=== PATIENT | male | born 1975 | race Caucasian/White ===

== ENCOUNTER 2023-05-14 16:50 | Outpatient (REF) | payer OTHER, SELFPAY | END 2023-05-14 16:51 | disposition home or self-care (01) | LOC: HO.HOSX 16:50 | PROVIDERS: Visit Provider Orthopaedic Surgery | DX: Z13.89 Encounter for screening for other disorder (principal) ==

== ENCOUNTER 2023-05-20 12:02 | Outpatient (REF) | payer OTHER, SELFPAY ==
--- NOTE | ~2023-05-20 | XR_ITS ---
EXAMINATION: XR KNEE, LEFT CLINICAL INFORMATION: Pain in left knee COMPARISON: None available. TECHNIQUE: Four views of the left knee. FINDINGS: No fracture. Small joint effusion. There is moderate to marked narrowing of the medial joint compartment. There is mild narrowing of the patellofemoral joint compartment. There are tricompartment marginal osteophytes. Quadriceps enthesopathy is noted. No abnormal soft tissue calcification. XR/XR knee LT 3V IMPRESSION: Moderate to marked osteoarthritis involving the medial joint compartment.
--- NOTE | ~2023-05-20 | XR_ITS ---
EXAMINATION: XR KNEE, RIGHT CLINICAL INFORMATION: Pain in right knee COMPARISON: None available. TECHNIQUE: 3 views of the right knee. FINDINGS: No fracture. Probable small joint effusion. Alignment is anatomic. There is moderate to marked narrowing of the medial joint compartment. No abnormal soft tissue calcification. XR/XR knee RT 3V IMPRESSION: Moderate to marked osteoarthritis of the medial joint compartment.
== END 2023-05-20 12:03 | disposition home or self-care (01) ==
LOC: HO.HOSX 12:02
PROVIDERS: Visit Provider Orthopaedic Surgery
DX: M25.561 Pain in right knee (principal); M25.562 Pain in left knee
CPT/HCPCS: 73562

== ENCOUNTER 2023-05-20 15:06 | Outpatient (AMB) | payer OTHER, SELFPAY ==
--- NOTE | 2023-05-20 15:09 | MHC.OFFVIS ---
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 Patient reports his pain has been going on for about 4 years and is a 7 on the 1-10 pain scale. He states his Left is worse. He has had gel injections with some relief. He has also had cortisone injections which gave him no relief. He has not able to take anti-inflammatory medicines because he is on Xarelto. He has tried Tylenol which gives him minimal relief. 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 Physical Exam Const Other: Well-nourished well-developed very friendly male awake alert and oriented x3 in no acute distress Extrem Other: Bilateral lower extremity examination shows good capillary refill, no skin lesions noted, normal sensation light touch Bilateral knee examination shows minimal effusions, palpable crepitus, pain with range of motion, no instability Results Reviewed Results Reviewed: X-rays of the patient's bilateral knees show moderate to severe joint space narrowing, subchondral sclerosis, no acute bony abnormalities Assessment & Plan Assessment & Plan (1) Right knee pain: Code(s): M25.561 - Pain in right knee (2) Left knee pain: Code(s): M25.562 - Pain in left knee Plan Mr. Jacobs presents with bilateral knee pains due to degenerative joint disease. I had a lengthy discussion with the patient regarding the treatment options. He has not gotten good relief from cortisone injections in the past. Thus, I will see whether or not his insurance company will cover a series of viscosupplementation injections for both of his knees. I will see him back once the injections are available. The patient will follow-up as instructed. I spent 22 minutes in reviewing the patient's records and imaging studies, seeing the patient and documenting in the medical record. Orders: Orders XR knee LT 3V 05/20/23 M25.562 - Pain in left knee XR knee RT 3V 05/20/23 M25.561 - Pain in right knee Medications: New tramadol 50 mg PO Q8H PRN 90 tabs 0RF pain Coding Level of Care Code New Pt Level 2 (71176) Diagnoses Right knee pain M25.561 Left knee pain M25.562
== END 2023-05-20 16:10 | disposition home or self-care (01) ==
PROVIDERS: Visit Provider Orthopaedic Surgery
DX: M25.561 Pain in right knee (principal); M25.562 Pain in left knee
CPT/HCPCS: 99202

== ENCOUNTER 2023-06-18 13:32 | Outpatient (AMB) | payer OTHER, SELFPAY ==
--- NOTE | 2023-06-18 13:52 | A.OFFVIS_ITS ---
Intake Intake Visit Reasons: Durolane gel injection Intake Note: Derrick is a 48-year-old male who presents with complaints of progressively worsening bilateral knee pains. His pains have gotten worse over the last few years in spite of continued non operative treatments. He has had cortisone injections which gave him minimal relief. He has also done physical therapy exercises which aggravated his pain. He has tried Tylenol and tramadol which gave him minimal relief. He has not able to take anti-inflammatory medicines because he is on Xarelto. 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 Physical Exam Const Other: Well-nourished well-developed very friendly male awake alert and oriented x3 in no acute distress Extrem Other: Bilateral lower extremity examination shows good capillary refill, no skin lesions noted, normal sensation light touch Bilateral knee examination shows minimal effusions, palpable crepitus with range of motion, pain with range of motion, no instability Office Procedures Joint Injection/Drain Joint Injection/Drain Primary Site: left knee Prep: site was prepped using aseptic technique Injected: 60 mg of (Durolane viscosupplementation) and 1% plain lidocaine Procedure: The patient tolerated the procedure well Coding 73843 - Large joint Procedure code (CPT) selection complete Joint Injection/Drain Joint Injection/Drain Primary Site: right knee Prep: site was prepped using aseptic technique Injected: 60 mg of (Durolane viscosupplementation) and 1% plain lidocaine Procedure: The patient tolerated the procedure well Coding 97950 - Large joint Procedure code (CPT) selection complete Results Reviewed Results Reviewed: X-rays of the patient's bilateral knee show joint space narrowing, subchondral sclerosis, no acute bony abnormalities Assessment & Plan Assessment & Plan (1) Left knee pain: Code(s): M25.562 - Pain in left knee (2) Right knee pain: Code(s): M25.561 - Pain in right knee Plan Mr. Jacobs presents with bilateral knee pains due to degenerative joint disease. I had a lengthy discussion with the patient regarding the treatment options. He has not gotten good relief from cortisone injections in the past. Thus, the risks and benefits of bilateral knee Durolane viscosupplementation injections were discussed at length with the patient. The patient wished to proceed. He tolerated the injections well. He will continue with his home exercise program. Will follow up with me on an as-needed basis should his symptoms not plateau at an unacceptable level over the next few months. Feel free to call me at any time should questions regarding his orthopedic management arise. I spent 22 minutes in reviewing the patient's records and imaging studies, seeing the patient and documenting in the medical record. Orders: Orders AMB Joint Injection/Aspiration 06/18/23 M25.562 - Pain in left knee AMB Joint Injection/Aspiration 06/18/23 M25.561 - Pain in right knee Coding Level of Care Code Est Pt Level 2 (23337) Diagnoses Left knee pain M25.562 Right knee pain M25.561 CPT Codes Coding - 74308 Large joint: 23256 - Large joint ([id number]) Coding - 29679 Large joint: 91581 - Large joint ([id number])
== END 2023-06-18 14:24 | disposition home or self-care (01) ==
PROVIDERS: Visit Provider Orthopaedic Surgery
DX: M17.0 Bilateral primary osteoarthritis of knee (principal)
CPT/HCPCS: 20610

== ENCOUNTER → 2023-06-18 13:32 | Outpatient (BNVA) | payer OTHER, SELFPAY | PROVIDERS: Visit Provider Orthopaedic Surgery | DX: M17.0 Bilateral primary osteoarthritis of knee (principal) | CPT/HCPCS: 20610; J7318 ==

== ENCOUNTER 2023-09-22 14:38 | Outpatient (AMB) | payer OTHER, SELFPAY ==
--- NOTE | 2023-09-22 14:40 | A.OFFVIS_ITS ---
Intake Visit Reasons: Bilateral knee pain Intake Note: Derrick is a 48 year old male who presents to the office today for a follow up bilateral Durolane gel injections 06/18/23. Pt states his knees were good for a while but states now the pain is starting to come back. He describes his knee pains as sharp in nature. He has taken Tylenol which gives him minimal relief. He has not able to take anti-inflammatory medicines because he is on Xarelto. He has done physical therapy exercises which aggravated his pain. The patient also complains of numbness and tingling in both of his hands. He states that he did undergo left wrist carpal tunnel release surgery approximately 10 years ago. He was scheduled to undergo right wrist carpal tunnel release surgery 1 year later but he suffered a transient ischemic attack so his surgery was canceled. 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 Physical Exam Const Other: Well-nourished well-developed very friendly male awake alert and oriented x3 in no acute distress Extrem Other: Bilateral lower extremity examination shows good capillary refill, no skin lesions noted, normal sensation light touch Bilateral knee examination shows minimal effusions, palpable crepitus with range of motion, pain with range of motion, no instability Office Procedures Joint Injection/Drain Joint Injection/Drain Primary Site: left knee Prep: site was prepped using aseptic technique Injected: 40 mg of, DepoMedrol and 1% plain lidocaine Procedure: The patient tolerated the procedure well Coding 02563 - Large joint Procedure code (CPT) selection complete Joint Injection/Drain Joint Injection/Drain Primary Site: right knee Prep: site was prepped using aseptic technique Injected: 40 mg of, DepoMedrol and 1% plain lidocaine Procedure: The patient tolerated the procedure well Coding 29014 - Large joint Procedure code (CPT) selection complete Results Reviewed Results Reviewed: X-rays of the patient's bilateral knee show joint space narrowing, subchondral sclerosis, no acute bony abnormalities Assessment & Plan Assessment & Plan (1) Left knee pain: Code(s): M25.562 - Pain in left knee Category: Medical (2) Right knee pain: Code(s): M25.561 - Pain in right knee Category: Medical (3) Pain in both knees: Code(s): M25.561 - Pain in right knee; M25.562 - Pain in left knee Plan Mr. Jacobs presents with bilateral knee pains due to degenerative joint disease. I had a lengthy discussion with the patient regarding the treatment options. The risks and benefits of bilateral knee cortisone injections were discussed at length with the patient. The patient wished to proceed. He tolerated the injections well. He will continue with his activity modifications. The patient also has bilateral hand numbness most likely due to carpal tunnel syndrome. Thus, I will send the patient for bilateral upper extremity nerve studies for further evaluation. I will also make him an appointment with our hand specialist, Dr. Quinn. He will contact me prior to his follow-up appointment in 3 months should any questions or concerns arise. I spent 20 minutes in reviewing the patient's records and imaging studies, seeing the patient and documenting in the medical record. Orders: Orders NE nerve conduction velocity Today G56.03 - Carpal tunnel syndrome, bilateral upper limbs AMB Joint Injection/Aspiration Today M25.561 - Pain in right knee AMB Joint Injection/Aspiration Today M25.562 - Pain in left knee Coding Level of Care Code Est Pt Level 3 (82888) Diagnoses Left knee pain M25.562 Right knee pain M25.561 Pain in both knees M25.561; M25.562 CPT Codes Coding - 95193 Large joint: 98029 - Large joint ([id number]) Coding - 58409 Large joint: 68992 - Large joint ([id number])
== END 2023-09-22 15:30 | disposition home or self-care (01) ==
PROVIDERS: Visit Provider Orthopaedic Surgery
DX: M17.0 Bilateral primary osteoarthritis of knee (principal)
CPT/HCPCS: 20610; 99213

== ENCOUNTER → 2023-09-22 14:38 | Outpatient (BNVA) | payer OTHER, SELFPAY | PROVIDERS: Visit Provider Orthopaedic Surgery | DX: M17.0 Bilateral primary osteoarthritis of knee (principal) | CPT/HCPCS: 20610; J1010 ==

== ENCOUNTER 2023-10-14 15:22 | Outpatient (REF) | payer OTHER, SELFPAY ==
--- NOTE | 2023-10-14 15:25 | EMG_ITS ---
Chief complaint: History of bilateral Carpal Tunnel Syndrome. Left Carpal Tunnel Syndrome surgery more than 10 years ago with good recovery. Right side was not operated on. Last year, patient fell on both hands. Since then he has been having pain on left wrist and 4th and 5th digits. Reason for referral: Evaluate for Carpal Tunnel Syndrome Referred by: Dr. Felix Procedure done: Left upper extremity NCS/EMG Precautions and/or limitations: None The limb temperature was monitored continuously and remained between 32-36 degrees C during the performance of the NCS. Ulnar motor NCS was performed with moderate elbow flexion between 70-90 degrees, with across-elbow distance of 10 cm. Nerve Conduction Studies Anti Sensory Summary Table ?Stim Site NR Onset (ms) Norm Onset (ms) Peak (ms) Norm Peak (ms) O-P Amp (?V) Norm O-P Amp Site1 Site2 Delta-0 (ms) Dist (cm) William (m/s) Norm William (m/s) Left Median Anti Sensory (2nd Digit) Wrist ? 2.6 3.3 <3.6 18.5 >10 Wrist 2nd Digit 2.6 14.0 54 Right Median Anti Sensory (2nd Digit) Wrist ? 3.1 4.3 <3.6 19.0 >10 Wrist 2nd Digit 3.1 14.0 45 Left Radial Anti Sensory (Thumb) Forearm ? 1.3 1.9 <3.1 19.4 Forearm Thumb 1.3 0.0 Right Radial Anti Sensory (Thumb) Forearm ? 0.9 1.5 <3.1 20.9 Forearm Thumb 0.9 0.0 Left Ulnar Anti Sensory (5th Digit) Wrist ? 2.4 3.3 <3.7 4.4 >15.0 Wrist 5th Digit 2.4 14.0 58 Right Ulnar Anti Sensory (5th Digit) Wrist ? 1.3 2.7 <3.7 15.0 >15.0 Wrist 5th Digit 1.3 14.0 108 Motor Summary Table ?Stim Site NR Onset (ms) Norm Onset (ms) O-P Amp (mV) Norm O-P Amp iAmp (mV) Amp (1st) (%) Site1 Site2 Delta-0 (ms) Dist (cm) William (m/s) Norm William (m/s) Left Median Motor (Abd Poll Brev) Wrist ? 3.8 <3.9 6.9 >4.5 8.4 100.0 Elbow Wrist 4.9 24.0 49 >45 Elbow ? 8.7 6.6 8.3 95.7 Right Median Motor (Abd Poll Brev) Wrist ? 4.8 <3.9 7.6 >4.5 8.8 100.0 Elbow Wrist 4.4 22.5 51 >45 Elbow ? 9.2 7.8 8.8 102.6 Left Ulnar Motor (Abd Dig Minimi) Wrist ? 2.7 <3.0 6.9 >5 9.2 100.0 B Elbow Wrist 3.9 22.0 56 >45 B Elbow ? 6.6 6.5 9.0 94.2 A Elbow B Elbow 1.5 10.0 67 >45 A Elbow ? 8.1 6.5 9.1 94.2 Right Ulnar Motor (Abd Dig Minimi) Wrist ? 2.7 <3.0 8.2 >5 10.6 100.0 B Elbow Wrist 3.7 23.5 64 >45 B Elbow ? 6.4 5.8 8.2 70.7 A Elbow B Elbow 1.3 10.0 77 >45 A Elbow ? 7.7 5.1 7.1 62.2 Left Ulnar Motor (FDI) Wrist ? 4.1 <3.0 6.0 >5 7.3 100.0 B Elbow Wrist 4.2 22.0 52 >45 B Elbow ? 8.3 3.2 4.0 53.3 A Elbow B Elbow 1.3 10.0 77 >45 A Elbow ? 9.6 3.1 3.9 51.7 EMG ?Side Muscle Nerve Root Ins Act Fibs Psw Amp Dur Poly Recrt Int Pat Comment Right 1stDorInt Ulnar C8-T1 Nml Nml Nml Nml Nml 0 Nml Complete Right FlexCarRad Median C6-7 Nml Nml Nml Nml Nml 0 Nml Complete Right Biceps Musculocut C5-6 Nml Nml Nml Nml Nml 0 Nml Complete Right Triceps Radial C6-7-8 Nml Nml Nml Nml Nml 0 Nml Complete Right Deltoid Axillary C5-6 Nml Nml Nml Nml Nml 0 Nml Complete Left 1stDorInt Ulnar C8-T1 Incr 1+ 1+ Nml Nml 0 Nml Complete Left FlexCarRad Median C6-7 Nml Nml Nml Nml Nml 0 Nml Complete Left Biceps Musculocut C5-6 Nml Nml Nml Nml Nml 0 Nml Complete Left Triceps Radial C6-7-8 Nml Nml Nml Nml Nml 0 Nml Complete Left Deltoid Axillary C5-6 Nml Nml Nml Nml Nml 0 Nml Complete Left FlexCarpiUln Ulnar C8,T1 Nml Nml Nml Nml Nml 0 Nml Complete FINDINGS: Right median motor nerve showed prolonged distal latency, normal amplitude and normal conduction velocity. Right median sensory nerve showed prolonged peak latencies. Left ulnar motor nerve, recording FDI muscle, showed prolonged distal latency, small amplitudes proximally, but normal conduction velocity. Left ulnar sensory nerve showed normal peak latencies but very small/almost flat amplitude. All other nerves tested were within normal. Concentric needle EMG was performed in selected muscles of the left upper extremity. Study revealed signs of electric abnormalities as shown in the table above. Left FDI showed increased insertional activity, PSWs and fibrillations. IMPRESSION: 1. This is an abnormal study. 2. 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 3. There is no electrodiagnostic evidence for median neuropathy at the wrist on the left. 4. There is electrodiagnostic evidence for right moderate-severe median neuropathy, consistent with Carpal Tunnel Syndrome. 5. There is no electrodiagnostic evidence for ulnar neuropathy on the right. 6. There is no electrodiagnostic evidence for brachial plexopathy or cervical radiculopathy. CLINICAL COMMENT: Ulnar neuropathy at the wrist is far less common than the more usual sites at the elbow; it is usually associated with trauma. Thank you for your kind referral. Lacy Alvarez MD, VANNA Board Certified, [place] Board [employer] Physical Medicine and Rehabilitation (ABPMR) Board Certified, [place] Board of Electrodiagnostic Medicine (ABEM) [place] [id number] [facility]
== END 2023-10-14 15:23 | disposition home or self-care (01) ==
LOC: HO.NEURO 15:22
PROVIDERS: PCP Internal Medicine; Visit Provider Orthopaedic Surgery
DX: G56.03 Carpal tunnel syndrome, bilateral upper limbs (principal)
CPT/HCPCS: 95886; 95911

== ENCOUNTER → 2023-10-14 15:25 | Outpatient (BNV) | payer OTHER, SELFPAY | PROVIDERS: PCP Internal Medicine; Visit Provider Physical Medicine & Rehabilitation | DX: G56.22 Lesion of ulnar nerve, left upper limb (principal); G56.01 Carpal tunnel syndrome, right upper limb | CPT/HCPCS: 95886; 95912 ==

== ENCOUNTER 2023-10-28 14:34 | Outpatient (AMB) | payer OTHER, SELFPAY ==
--- NOTE | 2023-10-28 14:43 | A.OFFVIS_ITS ---
Vital Signs 10/28/23 14:44 Height 5 ft 9 in Weight 380 lb BMI 56.1 Handedness Right Intake Visit Reasons: New prob- B/L CTS RT hand worse Intake Note: Derrick is a 48 year old right 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 male who presents today for bilateral CTS, right hand worse. Patient reports his left hand worsened a year ago after a fall at work. He is unable to get a proper night of rest due to the pain and numbness/tingling. He expresses his left hand cramps, pain radiates from base of thumb and up to his fingers and to his elbow. He states when this happens he has excruciating pain. When he makes a closed fist he has pain at his PIP joints of the 3rd, 4th, and 5th digits that radiates into his wrist and mid way down his arm. He was playing cards with his Thursday night and says he was unable to hold the deck of cards. At work he is having a hard time holding on to objects and paperwork and says he is dropping things. He had OT done but just for the right hand. He reported telling them of his left hand but says they informed him it was just bruised and focused mainly on his right hand. He is unable to take NSAIDS due to his heart medication. He takes Tylenol Arthritis and he does find relief, mainly for his knees but helps his hands a little. Says he can feel the difference when it wears off. Hx of TIA roughly 7-8 years ago a day before surgery for right hand and due to this he was unable to do Rt CTR. EMG done on 10/14/23 and he would like to discuss surgery. 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 The patient reports that symptoms have been ongoing for years, but he noticed an acute worsening in the left hand after a fall at work approximately 1 year ago. The patient reports that, when he does experience acute pain episodes in his left hand, it radiates up into his arm and shoulder, and he feels as if his whole hand is cramping. Pain is also localized to the base of the thumb during these episodes. The patient states that, when he makes a closed fist, he also experiences pain at the MCP and PIP joints of the left middle, ring, small fingers. 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 Patient does have a history of occupational therapy for the right, and he does report that this helped. The patient does report intermittent, but daily numbness and tingling in the median nerve distribution of the right hand, ongoing for at least 8 years. 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 No thenar or intrinsic wasting. Good APB muscle firing and good finger cross. Vascular: Capillary refill brisk. ROM: Patient can make a fist and extend all their digits. Skin: No lacerations or abrasions noted. General: No ecchymosis. No erythema or evidence of infection. Negative Froment sign on the left Results Reviewed Results Reviewed: IMPRESSION: 1. This is an abnormal study. 2. 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 3. There is no electrodiagnostic evidence for median neuropathy at the wrist on the left. 4. There is electrodiagnostic evidence for right moderate-severe median neuropathy, consistent with Carpal Tunnel Syndrome. 5. There is no electrodiagnostic evidence for ulnar neuropathy on the right. 6. There is no electrodiagnostic evidence for brachial plexopathy or cervical radiculopathy. Assessment & Plan Assessment & Plan (1) Ulnar neuropathy at wrist: Code(s): G56.20 - Lesion of ulnar nerve, unspecified upper limb Category: Medical (2) Carpal tunnel syndrome, right: Code(s): G56.01 - Carpal tunnel syndrome, right upper limb Category: Medical Plan 1. Right carpal tunnel syndrome Symptoms intermittent, but daily, worse at night I educated the patient about the condition. I discussed both operative and nonoperative treatment options. The patient would like to proceed with surgery. The risks and benefits of operative treatment were discussed with the patient and the patient wishes to proceed with surgery. These risks include, but are not limited to, risk of damage to blood vessels, nerves, tendons, infection, recurrence, incomplete relief of preoperative symptoms, persistent pain, possible need for further surgery, and the risks associated with regional blocks and/or anesthesia. Plan is to take the patient to the operating room at some point in the next few weeks for the following procedures: 1. Right carpal tunnel release under local anesthesia All of the preoperative paperwork including the consent was discussed today. All of the patient's questions were answered in the clinic today. The patient understands that they will be in contact with our certified surgical technician to discuss scheduling their procedure. Patient denies diabetes, asthma, heart issues, lung issues, kidney issues, or current smoking. Patient is currently on Xarelto 20 mg daily, but does not have to stop due to the procedure being under local anesthesia 2. Ulnar neuropathy at the wrist at Guyon's canal At this time, MRI of the left wrist with and without contrast is ordered to assess the left wrist for any potential ganglion cysts, ulnar artery aneurysms, etc. that could be causing this left ulnar neuropathy Patient is referred to Dr. Quinn for follow-up after MRI Patient is amenable to this plan Patient will follow-up after MRI with Dr. Quinn for discussion of left ulnar neuropathy, sooner with any acute concerns Orders: Orders MR wrist LT w con 10/28/23 G56.20 - Lesion of ulnar nerve, unspecified upper limb Coding Level of Care Code Est Pt Level 4 (90511) Diagnoses Ulnar neuropathy at wrist G56.20 Carpal tunnel syndrome, right G56.01
[2023-10-28 14:44] VITALS: BMI 56.1
== END 2023-10-28 15:40 | disposition home or self-care (01) ==
DX: G56.01 Carpal tunnel syndrome, right upper limb (principal); G56.22 Lesion of ulnar nerve, left upper limb
CPT/HCPCS: 99214

== ENCOUNTER 2023-12-02 10:54 | Outpatient (REF) | payer OTHER, SELFPAY ==
--- NOTE | ~2023-12-02 | MR_ITS ---
EXAMINATION: MR WRIST LT WO/W CON INDICATION: G56.20 - Lesion of ulnar nerve, unspecified upper limb G56 Additional Notes/Special Instructions Ulnar neuropathy at Guyon's canal need to assess for ganglion or ulnar artery aneurysm COMPARISON: None available. TECHNIQUE: Multiplanar MR imaging was obtained through the left wrist on a 1.5 Estefania magnet before and after intravenous administration of 10 mL Gadavist. FINDINGS: Ligaments/TFCC: Intact. Bones and articular cartilage: There is xovm-lf-wttcgrbj osteoarthritis of the first CMC joint with narrowing of cartilage loss, marginal osteophytes, subchondral edema, and subchondral cystic change. Mild osteoarthritis is evident at the second CMC joint with prominent dorsal osteophytes. Joints otherwise relatively well-preserved. A few small carpal cysts are identified. No fracture or malalignment. Joint fluid: No effusion or synovitis. Muscles and tendons: A 2.5 cm segment of marked tendinosis of the extensor pollicis longus is characterized by tendon thickening and increased intersubstance signal, occurring where the tendon crosses the extensor carpi radialis brevis and extensor carpi radialis longus tendons. This is associated tenosynovitis and may correspond to distal intersection syndrome. No appreciable tendon tears. The extensor carpi radialis brevis and longus tendons are intact without tears or tendinosis and minimal tenosynovitis. Tendon is otherwise normal in appearance. Intrinsic hand musculature is normal in signal intensity. Nerves: Carpal tunnel and Guyon's canal are unremarkable. The ulnar nerve is normal in course, caliber, and signal intensity without appreciable mass effect. There is significant tortuosity of the ulnar artery distal to the Guyon's canal. Arteries and veins appear patent on these images including the postcontrast images, assessment for subtle vascular abnormalities is limited without arterial phase imaging. Superficial soft tissues: There is a 7 mm synovial cyst at the volar margin of the radiocarpal joint. Subcutaneous soft tissues are otherwise unremarkable. MR/MR wrist LT wo/w con IMPRESSION: 1. 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 2. Iphv-ow-uqlfbhjm osteoarthritis at the first CMC joint and mild osteoarthritis at the second CMC joint. 3. No appreciable abnormalities of the ulnar nerve. No appreciable mass effect in Guyon's canal. Significant tortuosity of the ulnar artery distal to the Guyon's canal. No appreciable aneurysmal dilatation or thrombosis, though CT or MR angiography would be more sensitive for subtle vascular abnormalities. Electronically signed by: Francisco J Jeong MD 12/03/2023 10:27 AM EDT
[2023-12-02] MEDS: gadobutroL 10 ML VIAL IVPUSH (11:44)
== END 2023-12-02 10:55 | disposition home or self-care (01) ==
LOC: HO.MRI 10:54
PROVIDERS: PCP Internal Medicine
DX: G56.22 Lesion of ulnar nerve, left upper limb (principal)
CPT/HCPCS: 73223; A9585

== ENCOUNTER 2023-12-09 13:59 | Outpatient (AMB) | payer OTHER, SELFPAY ==
--- NOTE | 2023-12-09 14:02 | A.OFFVIS_ITS ---
Vital Signs 12/09/23 14:03 Height 5 ft 9 in Weight 380 lb BMI 56.1 Intake Visit Reasons: OV- Discuss CTS Release/MRI Review Intake Note: Derrick is a 48 year old right 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 male who presents today to discuss left wrist MRI results. Patient recently seen on 10/28/23 for bilateral CTS, right hand worse, by LUISA Melgar. Patient is also scheduled for a right C TR with Dr. Quinn, DOS 12/24/23. Allergies transparent dressing Adverse Reaction (Mild, Verified 12/09/23 14:03) Blister HPI HPI OV- Discuss CTS Release/MRI Review: Details: Derrick is a 48 year old right 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 man who presents for a left wrist MRI review. 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 He complains of pain, weakness, and numbness in his left hand. His pain is primarily in his middle, ring, and small fingers. He complains of intermittent numbness in the left middle, ring, and small fingers. He says his numbness began after a fall at work in ~10/2022, where he landed on his palms. He says he has difficulty holding items for periods of time, including paperwork at work or a deck of cards. This has worsened in the last year. He complains of numbness in the right median nerve distribution. Symptoms inte rmittent, but daily, worse at night. He says he has numbness in the right small finger today. He has a Hx of a left carpal tunnel release in ~2012, with good relief and normal sensation. He has a Hx of a TIA ~8 years ago, the day prior to his scheduled right carpal tunnel release. This surgery was not rescheduled or performed. He works in a [employer]. 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 Review of Systems Const All systems reviewed & are unremarkable except as noted in HPI and below Physical Exam Vital Signs: BMI result Body Mass Index 56.1 Const General: cooperative, healthy appearing and no acute distress Orientation/consciousness: patient oriented x3 HEENT Head: Yes normocephalic and Yes atraumatic Eyes EOM: EOMs intact bilaterally Resp Effort & Inspection: normal respiratory effort and able to speak in complete sentences Cardio Jugular venous distension: no JVD Skin General skin exam: turgor normal Rashes: no rashes Neuro General: patient oriented x3 Extrem Other: Evaluation of Bilateral Upper Extremity: The patient is alert, oriented, and in no acute distress Neuro: Median, Ulnar, Radial nerves motor intact to the tips of all digits today in clinic Normal sensation in the right median nerve distribution. Numbness in the right ulnar nerve distribution Decreased subjective sensation of the middle, ring, and small fingers of the left. 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 General: No Ecchymosis. No Erythema or evidence of infection. Left wrist MRI: FINDINGS: Ligaments/TFCC: Intact. Bones and articular cartilage: There is uilu-nw-whqrzivc osteoarthritis of the first CMC joint with narrowing of cartilage loss, marginal osteophytes, subchondral edema, and subchondral cystic change. Mild osteoarthritis is evident at the second CMC joint with prominent dorsal osteophytes. Joints otherwise relatively well-preserved. A few small carpal cysts are identified. No fracture or malalignment. Joint fluid: No effusion or synovitis. Muscles and tendons: A 2.5 cm segment of marked tendinosis of the extensor pollicis longus is characterized by tendon thickening and increased intersubstance signal, occurring where the tendon crosses the extensor carpi radialis brevis and extensor carpi radialis longus tendons. This is associated tenosynovitis and may correspond to distal intersection syndrome. No appreciable tendon tears. The extensor carpi radialis brevis and longus tendons are intact without tears or tendinosis and minimal tenosynovitis. Tendon is otherwise normal in appearance. Intrinsic hand musculature is normal in signal intensity. Nerves: Carpal tunnel and Guyon's canal are unremarkable. The ulnar nerve is normal in course, caliber, and signal intensity without appreciable mass effect. There is significant tortuosity of the ulnar artery distal to the Guyon's canal. Arteries and veins appear patent on these images including the postcontrast images, assessment for subtle vascular abnormalities is limited without arterial phase imaging. Superficial soft tissues: There is a 7 mm synovial cyst at the volar margin of the radiocarpal joint. Subcutaneous soft tissues are otherwise unremarkable. IMPRESSION: 1. 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 2. Ulma-ag-bngsaikp osteoarthritis at the first CMC joint and mild osteoarthritis at the second CMC joint. 3. No appreciable abnormalities of the ulnar nerve. No appreciable mass effect in Guyon's canal. Significant tortuosity of the ulnar artery distal to the Guyon's canal. No appreciable aneurysmal dilatation or thrombosis, though CT or MR angiography would be more sensitive for subtle vascular abnormalities. Electronically signed by: Francisco J Jeong MD 12/03/2023 Nerve Conduction Study: IMPRESSION: 1. This is an abnormal study. 2. 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 3. There is no electrodiagnostic evidence for median neuropathy at the wrist on the left. 4. There is electrodiagnostic evidence for right moderate-severe median neuropathy, consistent with Carpal Tunnel Syndrome. 5. There is no electrodiagnostic evidence for ulnar neuropathy on the right. 6. There is no electrodiagnostic evidence for brachial plexopathy or cervical radiculopathy. CLINICAL COMMENT: Ulnar neuropathy at the wrist is far less common than the more usual sites at the elbow; it is usually associated with trauma. Lacy Alvarez MD, VANNA 10/15/23 Psych Appearance: grossly normal Affect: normal affect Attitude: cooperative Assessment & Plan Assessment & Plan (1) Carpal tunnel syndrome, right: Code(s): G56.01 - Carpal tunnel syndrome, right upper limb Category: Medical (2) Numbness and tingling in right hand: Code(s): R20.0 - Anesthesia of skin; R20.2 - Paresthesia of skin Category: Medical (3) Neuropathy of left ulnar nerve at wrist: Code(s): G56.22 - Lesion of ulnar nerve, left upper limb Category: Medical (4) History of carpal tunnel release: Comment: Left wrist Code(s): Z98.890 - Other specified postprocedural states Category: Surgical (5) Numbness and tingling in left hand: Code(s): R20.0 - Anesthesia of skin; R20.2 - Paresthesia of skin Category: Medical Plan Assessment & Plan: 1. Right carpal tunnel syndrome, moderate-severe Symptoms intermittent, but daily, worse at night 2. Right hand numbness In the ulnar nerve distribution Numbness today in clinic NCS negative for ulnar neuropathy or Cubital tunnel syndrome -negative Froment's sign & no wasting We may consider a repeat NCS in the future to assess for peripheral nerve compression I educated him about this condition I discussed operative and non-operative treatment options The patient would like to proceed with surgery The risks and benefits of operative treatment were discussed with the patient and the patient wishes to proceed with surgery. These risks include, but are not limited to risk of damage to blood vessels, nerves, tendons, infection, recurrence, incomplete relief of preoperative symptoms, persistent pain, possible need for further surgery and the risks associated with regional blocks and anesthesia. The plan is to take the patient to the operating room sometime on 12/24/23 for the following procedures: 1. Right carpal tunnel release, under local All of the preoperative paperwork including the consent was reviewed today. All the patient's questions were answered. He denies Diabetes, asthma, lung, kidney issues He has a Hx of Afib & TIA in ~2015. He is currently on Xarelto, and does not need to stop this prior to his surgery. 3. Left ulnar neuropathy at the wrist Seen on NCS from 10/15/23, with Dr. Granado No evidence of ulnar nerve entrapment seen on wrist MRI from 12/03/23 Numbness in left small ring and middle fingers since fall onto outstretched hand since October of 2022, worsening with time per patient. 4. Left hand numbness, S/P fall Numbness in the middle, ring, and small fingers Hx of left carpal tunnel release ~10 years ago, with normal sensation until a fall onto his hands in ~10/2022 We may consider a possible carpal tunnel injection in the future to see if this would improve his sensation in the middle and ring fingers. We will discuss this after he recovers from his surgery. 5. Left basal joint osteoarthritis 6. Left hand osteoarthritis Primarily second CMC joint We can discuss this at a later appointment Scribed for Chayito Quinn MD by Shubham Up, medical coding technician, on 12/09/23 at 2:50 PM, EST. Coding Level of Care Code Est Pt Level 5 (54516) Diagnoses Carpal tunnel syndrome, right G56.01 Numbness and tingling in right hand R20.0; R20.2 Neuropathy of left ulnar nerve at wrist G56.22 History of carpal tunnel release Z98.890 Numbness and tingling in left hand R20.0; R20.2
[2023-12-09 14:03] VITALS: BMI 56.1
== END 2023-12-09 14:59 | disposition home or self-care (01) ==
PROVIDERS: PCP Internal Medicine; Visit Provider Orthopaedic Surgery
DX: G56.01 Carpal tunnel syndrome, right upper limb (principal); R20.0 Anesthesia of skin; R20.2 Paresthesia of skin; G56.22 Lesion of ulnar nerve, left upper limb
CPT/HCPCS: 99214

== ENCOUNTER → 2023-12-09 13:59 | Outpatient (BNVA) | payer OTHER, SELFPAY | PROVIDERS: PCP Internal Medicine; Visit Provider Orthopaedic Surgery ==

== ENCOUNTER 2023-12-24 08:38 | Day surgery (SDC) | payer OTHER, SELFPAY ==
[2023-12-24 09:48] VITALS: BMI 58.3
[2023-12-24 09:51] VITALS: BP 150/83; PULSE 74; RESP 18; TEMP 36.7; O2SAT 98
--- NOTE | 2023-12-24 10:03 | P.OP_ITS ---
Operative Note Operative Note Date of Service: 12/24/23 Narrative: Preop diagnosis: 1. Right Carpal tunnel syndrome Postop diagnosis: same Procedure: 1. Right Carpal tunnel release Surgeon: Chayito Quinn MD Traffic Control Operator: Mike MORAN Anesthesia: local block using 1% lidocaine with epinephrine Findings: Thickened transverse carpal ligament. EBL: Less than 5 mL Specimens: None Complications: None Disposition: Brought to recovery room in stable condition Plan: Follow-up for 10-14 days for wound check and suture removal Indications: The patient is 48 years old, with right carpal tunnel syndrome that has been unresponsive to nonoperative management. The risks and benefits of operative treatment including but not limited to risk of damage to blood vessels, nerves, tendons, infection, persistent pain, persistent symptoms, or possible need for additional surgery were discussed with the patient and the patient wishes to proceed with surgery. Procedure: Once consent was obtained a local block was performed using a combination of 1% lidocaine with epinephrine. The patient was then brought back to the operating suite and placed on the operative table in supine position. The right upper extremity was prepped and draped in a standard surgical fashion. Once assured that we had a good block, a 2.0 cm longitudinal incision was made centered over the carpal tunnel. The incision was made through the skin to the subcutaneous tissues using a #15 blade. Dissection was made down to the level of the transverse carpal ligament with care being taken to protect the palmar cutaneous nerve. Once the transverse carpal ligament was clearly visualized, a longitudinal incision was made in the transverse carpal ligament 1st using a #15 blade, then using tenotomy scissors under direct visualization. Care was taken to look for and protect the motor branch of the median nerve when seen in this area. Once satisfied with our carpal tunnel release the wound was copiously irrigated with normal saline and hemostasis was obtained with a brief period of local pressure. The skin edges were reapproximated with some 5.0 nylon suture material and a sterile dressing was applied. The patient appears to have tolerated the procedure well and with no complications. All digits were well vascularized at the conclusion of the case.
--- NOTE | 2023-12-24 10:03 | MHC.SHP ---
Pre-Procedural Eval Section A - 24 Hr Update-Section A only Date of Service: 12/24/23 The patient is an INPATIENT: No Changes since office visit: No Cold of Flu in the past 2 weeks, No New Medical Problems, No Changes in Medication and No Patient answered all questions The patient has been examined within 24 hours of the surgical procedure. The History & Physical has been completed within 30 days and I have reviewed it.: Yes Section B - Complete if H&P > 30 days Chief Complaint: Carpal tunnel syndrome, right upper limb Allergies: Allergies Allergy/AdvReac Type Severity Reaction Status Date / Time transparent dressing AdvReac Mild Blister Verified 12/24/23 09:52 Plan Diagnosis/Plan: Unchanged I have reviewed the history and physical and performed a pertinent physical examination on my patient. No changes have occurred unless specified. Time Spent With Patient Time: Total time managing care of this patient today ____ minutes.
[2023-12-24 11:25] VITALS: BP 147/90; PULSE 67; RESP 18
== END 2023-12-24 11:34 | disposition home or self-care (01) ==
PROVIDERS: PCP Internal Medicine; Visit Provider Orthopaedic Surgery
PROC: (CPT 64721; principal; 2023-12-24 11:30)
DX: G56.01 Carpal tunnel syndrome, right upper limb (principal); M18.11 Unilateral primary osteoarthritis of first carpometacarpal joint, right hand; R20.0 Anesthesia of skin; R20.2 Paresthesia of skin; I48.91 Unspecified atrial fibrillation; Z86.73 Personal history of transient ischemic attack (TIA), and cerebral infarction without residual deficits; Z79.01 Long term (current) use of anticoagulants; L23.1 Allergic contact dermatitis due to adhesives; Z98.890 Other specified postprocedural states; Z87.891 Personal history of nicotine dependence
CPT/HCPCS: 64721; J0171; J2003

== ENCOUNTER → 2023-12-24 08:38 | Outpatient (BNV) | payer OTHER, SELFPAY | PROVIDERS: PCP Internal Medicine; Visit Provider Orthopaedic Surgery | DX: G56.01 Carpal tunnel syndrome, right upper limb (principal) | CPT/HCPCS: 64721 ==

== ENCOUNTER 2024-01-06 09:58 | Outpatient (AMB) | payer OTHER, SELFPAY ==
--- NOTE | 2024-01-06 10:05 | MHC.OFFVIS ---
Intake Visit Reasons: PO RT CTR 12/24/23 AR Intake Note: Derrick is a 48 year old right 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 male who presents today post operatively s/p right carpal tunnel release w/ Dr Quinn DOS: 12/24/23. Patient denies any numbness and tingling. Pt states he does have some pain around his wrist and palm still. Allergies transparent dressing Adverse Reaction (Mild, Verified 01/06/24 10:06) Blister HPI HPI PO RT CTR 12/24/23 AR: Details: Patient is a 48-year-old male who presents for postoperative evaluation status post right carpal tunnel release, DOS 12/24/2023. Today, the patient reports that he is feeling much better, and that the numbness and tingling in his hand has completely resolved, including the small finger. However, the patient reports that the significant discomfort he began experiencing while on the operating table in his right radial wrist and thumb has continued postoperatively, but is steadily improving. Patient does state that he would like to hold off on any potential operative intervention for at least a few weeks on the left. Other acute complaints or concerns this time. [facility] Medical History (Updated 01/06/24 @ 10:23 by LUISA Melgar) Hypertension Atrial fibrillation Surgical History Status post catheter ablation of atrial fibrillation Hx of tonsillectomy History of carpal tunnel release Social History (Updated 10/28/23 @ 14:46 by JOHN Estrada) Are you a primary grounds caretaker to a significant other at home: No Do you presently have visiting nurse or other home services: No Alcohol intake: current Alcohol intake frequency: holidays/special occasions only Patient Tobacco Use Status: Former Tobacco user Current occupational status: employed 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 Good APB muscle firing and good finger cross. Vascular: Capillary refill brisk. ROM: Patient can make a fist and extend all their digits. Skin: With a approximated and well healing incision site noted on the volar aspect of the right wrist General: No ecchymosis. No erythema or evidence of infection. Positive Foster test on the right Tenderness to palpation of the right radial styloid Assessment & Plan Assessment & Plan (1) De Quervain's tenosynovitis, right: Code(s): M65.4 - Radial styloid tenosynovitis [de Quervain] Category: Medical (2) Carpal tunnel syndrome, right: Code(s): G56.01 - Carpal tunnel syndrome, right upper limb Category: Medical Plan 1. Carpal tunnel syndrome, right status post carpal tunnel release DOS 12/24/2023 Patient appears to be recovering well postoperatively Patient is educated about the typical recovery course At this time, patient is informed that he will not require an acute follow-up for his right carpal tunnel release, as he appears to be recovering well Patient was amenable to this plan 2. De Quervain tenosynovitis, right Patient is educated about this condition and the treatment options available, namely but not limited to conservative pain management, bracing, OT, or steroid injection Patient states he would like to proceed with occupational therapy and bracing Patient was provided with a comfort cool thumb spica brace for use with daytime activities in the office today Patient is also referred to occupational therapy for treatment of de Quervain tenosynovitis Patient is advised to follow-up if he does not experience adequate relief after 4-6 weeks of occupational therapy and bracing for further discussion of treatment options 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 Quinn for discussion of treatment options for Guyon's canal deformity Patient will follow-up in 4-[address] Quinn, sooner with any acute concerns Orders: Orders OT Evaluation and Treatment Today M65.4 - Radial styloid tenosynovitis [de Quervain] Coding Level of Care Code Est Pt Level 3 (70333) Diagnoses De Quervain's tenosynovitis, right M65.4 Carpal tunnel syndrome, right G56.01
== END 2024-01-06 10:34 | disposition home or self-care (01) ==
PROVIDERS: PCP Internal Medicine
DX: M65.4 Radial styloid tenosynovitis [de Quervain] (principal); G56.01 Carpal tunnel syndrome, right upper limb
CPT/HCPCS: 99213

== ENCOUNTER → 2024-01-06 09:58 | Outpatient (BNVA) | payer OTHER, SELFPAY | PROVIDERS: PCP Internal Medicine | DX: M17.0 Bilateral primary osteoarthritis of knee (principal); Z48.811 Encounter for surgical aftercare following surgery on the nervous system; M65.4 Radial styloid tenosynovitis [de Quervain]; M21.832 Other specified acquired deformities of left forearm | CPT/HCPCS: 20610; J1010; J2003 ==

== ENCOUNTER 2024-01-06 10:40 | Outpatient (AMB) | payer OTHER, SELFPAY ==
--- NOTE | 2024-01-06 10:46 | MHC.OFFVIS ---
Intake Visit Reasons: Bilateral knee pains Intake Note: Derrick is a 48 year old male who presents with complaints of progressively worsening bilateral knee pains. He describes his pains as sharp and severe in nature. Has done physical therapy in the past which aggravated his pain. He has also tried Tylenol which gives him minimal relief. He is not able to take anti-inflammatory medicines because he is on Xarelto. He has had cortisone injections in the past which gave him temporary relief. He has also had bilateral Durolane viscosupplementation injections which gave him good relief. He denies any locking or giving way. Allergies transparent dressing Adverse Reaction (Mild, Verified 01/06/24 10:51) Blister Medication List - Last Reconciled 01/07/24 by Ian Felix MD acetaminophen ER 1,950 mg PO Q12H cetirizine 20 mg PO DAILY PRN gabapentin mg PO rivaroxaban (Xarelto) 20 mg PO DAILY sotalol 120 mg PO BID PFSH Medical History (Updated 01/07/24 @ 07:27 by Ian Felix MD) Hypertension Atrial fibrillation Surgical History Status post catheter ablation of atrial fibrillation Hx of tonsillectomy History of carpal tunnel release Social History (Updated 10/28/23 @ 14:46 by JOHN Estrada) Are you a primary health care facilities inspector to a significant other at home: No Do you presently have visiting nurse or other home services: No Alcohol intake: current Alcohol intake frequency: holidays/special occasions only Patient Tobacco Use Status: Former Tobacco user Current occupational status: employed 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 , Right 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 Physical Exam Const Other: Well-nourished well-developed very friendly male awake alert and oriented x3 in no acute distress Extrem Other: Bilateral lower extremity examination shows good capillary refill, no skin lesions noted, normal sensation light touch Bilateral knee examination shows minimal effusions, palpable crepitus with range of motion, pain with range of motion, no instability Office Procedures Joint Injection/Aspiration Joint Injection/Aspiration Primary Site: left knee Prep: site was prepped using aseptic technique Injected: 40 mg of, DepoMedrol and 1% plain lidocaine Procedure: The patient tolerated the procedure well Coding 33407 - Large joint Procedure code (CPT) selection complete Joint Injection/Aspiration Joint Injection/Aspiration Primary Site: right knee Prep: site was prepped using aseptic technique Injected: 40 mg of, DepoMedrol and 1% plain lidocaine Procedure: The patient tolerated the procedure well Coding 89815 - Large joint Procedure code (CPT) selection complete Results Reviewed Results Reviewed: X-rays of the patient's bilateral knee show joint space narrowing, subchondral sclerosis, no acute bony abnormalities Assessment & Plan Assessment & Plan (1) Osteoarthritis of left knee: Code(s): M17.12 - Unilateral primary osteoarthritis, left knee Category: Medical (2) Osteoarthritis of right knee: Code(s): M17.11 - Unilateral primary osteoarthritis, right knee Category: Medical Plan Mr. Jacobs presents with bilateral knee pains due to osteoarthritis. The risks and benefits of bilateral knee cortisone injections were discussed at length with the patient. The patient wished to proceed. He tolerated the injections well. If he does not get lasting relief from the cortisone injection therapy I will see whether or not the patient's insurance company will cover a another viscosupplementation injection, such as Durolane, for both of his knees. I will see him back once the injections are available. Feel free to call me at any time should questions regarding his orthopedic management arise. I spent 22 minutes in reviewing the patient's records and imaging studies, seeing the patient and documenting in the medical record. Orders: Orders AMB Joint Injection/Aspiration 01/06/24 M17.11 - Unilateral primary osteoarthritis, right knee AMB Joint Injection/Aspiration 01/06/24 M17.12 - Unilateral primary osteoarthritis, left knee Coding Level of Care Code Est Pt Level 3 (68858) Complex EM visit Add On G2211 Diagnoses Osteoarthritis of left knee M17.12 Osteoarthritis of right knee M17.11 CPT Codes Coding - 75245 Large joint: 12237 - Large joint ([id number]) Coding - 23450 Large joint: 45335 - Large joint ([id number])
== END 2024-01-06 11:19 | disposition home or self-care (01) ==
LOC: HO.HOS 10:40
PROVIDERS: PCP Internal Medicine; Visit Provider Orthopaedic Surgery
DX: M17.0 Bilateral primary osteoarthritis of knee (principal)
CPT/HCPCS: 20610; 99213

== ENCOUNTER 2024-01-19 13:00 | Outpatient (RCR) | payer OTHER, SELFPAY ==
--- NOTE | 2024-01-13 14:04 | MHC.OT.EP ---
[address] [phone] Occupational Therapy Plan of Care Patient Name: Derrick Jacobs Date of Evaluation: 01/13/24 Diagnosis: Right De Quervains Tendinitis Pain Location: Burning through dorsal wrist and into dorsal thumb 2/10 (pt reports significant improvement since surgery) Pain Score: 2 Pain Scale Used: Numeric (0 - 10) Aggravating Factors: Nothing makes it worse Alleviating Factors: Tylenol for arthritis Assessment: 48 yo male w/ hx of B/L CTS, had left CTR done at [facility] (>8 years ago) and right CTR recently w/ Dr Quinn. He was seen for post-op follow up appointment and noted right radial and wrist pain. He reports relief of carpal tunnel symptoms, but is referred to OT for further management of right radial wrist pain. On assessment today, post-op incision is well healed, soft scar feel and minimal pain in palm and incision. Primary compliant is burning pain/sensation across dorsal wrist and radiating into thumb. He has (+) Tinels over dorsal radial sensory nerve but no replication of pain w/ deviation of thumb flex/ext with (-) Finklesteins today. He reports symptoms have much improved since ortho follow up and has no significant functional limitations with plan to return back to work in two weeks. We will continue brief course of OT for post-op CTR education and management of nerve irritation, but otherwise I anticipate he will do well. Frequency and Duration: The patient will be seen 1x/wk for 2 weeks Short Term Goals: Ind w/ HEP Ind w/ scar massage/STM Ind w/ activity modification/joint protection techniques to minimize wrist strain Long-Term Goals: Treatment Plan: Therapeutic Exercise Therapeutic Activity Home Exercise Program Splinting Patient Education Desensitization/Sensory Re-ed Edema Control ADL Training Paraffin Fluidotherapy MHP Cold Packs Joint Mobilization Soft Tissue Mobilization Kinesiotaping Electronically Signed By: Katherine Lofton OTR/L CHT Please Sign and return to therapist. Thank you once again for your referral.
--- NOTE | 2024-01-19 13:34 | MHC.OT.DC ---
[address] [phone] F: [phone] Occupational Therapy Discharge Note Patient Name: Derrick Jacobs Provider: Mike Menendez PA-C Diagnosis: Right De Quervains Tendinitis Date of Evaluation: 01/13/24 Date of Discharge: 01/19/24 Treatments to Date: 2 Discharge Status: Achieved Goals Improved Function Independent with HEP Discharge Summary: Derrick was referred to OT post-op right CTR w/ right thumb tingling and pain. He has been following HEP for one week w/ improvement in thumb numbness/tingling and good follow through w/ HEP for range and massage. He has well healed incision with soft scar feel. Good carton wrapper strength, some strain reported with prolonged gross grasp (carrying items at home). Ind w/ HEP and self management techniques, plans to return to work next week and discussed options to reduce strain. Electronically Signed By: Katherine Lofton OTR/Sunny CHT Reviewed/agree with student documentation: Therapist: Please Sign and return to therapist, thank you for your referral.
== END 2024-01-19 13:35 | disposition home or self-care (01) ==
LOC: HO.OT 13:00
PROVIDERS: PCP Internal Medicine
DX: M65.4 Radial styloid tenosynovitis [de Quervain] (principal)
CPT/HCPCS: 97110; 97140; 97165

== ENCOUNTER 2024-04-06 14:15 | Outpatient (AMB) | payer OTHER, SELFPAY ==
--- NOTE | 2024-04-06 14:23 | A.OFFVIS_ITS ---
Vital Signs 04/06/24 14:24 Height 5 ft 9 in Weight 395 lb BMI 58.3 Intake Visit Reasons: Bilateral knee pains Intake Note: Derrick is a 49 year old male who presents with complaints of progressively worsening bilateral knee pains. He describes his pains as sharp nature. He has had cortisone injections which gave him minimal relief. He has also physical therapy exercises. He has tried all and anti-inflammatory medicines which gave him minimal relief. Allergies transparent dressing Adverse Reaction (Mild, Verified 04/06/24 14:24) Blister Medication List - Last Reconciled 04/07/24 by Ian Felix MD acetaminophen ER 1,950 mg PO Q12H cetirizine 20 mg PO DAILY PRN gabapentin mg PO rivaroxaban (Xarelto) 20 mg PO DAILY sotalol 120 mg PO BID PFSH Medical History (Updated 01/07/24 @ 07:27 by Ian Felix MD) Hypertension Atrial fibrillation Surgical History Status post catheter ablation of atrial fibrillation Hx of tonsillectomy History of carpal tunnel release Social History (Updated 10/28/23 @ 14:46 by JOHN Estrada) Are you a primary social worker palliative care to a significant other at home: No Do you presently have visiting nurse or other home services: No Alcohol intake: current Alcohol intake frequency: holidays/special occasions only Patient Tobacco Use Status: Former Tobacco user Current occupational status: employed 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 , Right 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 Physical Exam Vital Signs: BMI result Body Mass Index 58.3 Const Other: Well-nourished well-developed very friendly male awake alert and oriented x3 in no acute distress Extrem Other: Bilateral lower extremity examination shows good capillary refill, no skin lesions noted, normal sensation light touch Bilateral knee examination shows minimal effusions, palpable crepitus with range of motion, pain with range of motion, no instability Office Procedures AMB Joint Injection/Aspiration Joint Injection/Aspiration Primary Site: left knee Prep: site was prepped using aseptic technique Injected: 60 mg of (Durolane viscosupplementation) and 1% plain lidocaine Procedure: The patient tolerated the procedure well Coding 76276 - Large joint Procedure code (CPT) selection complete AMB Joint Injection/Aspiration Joint Injection/Aspiration Primary Site: right knee Prep: site was prepped using aseptic technique Injected: 60 mg of (Durolane viscosupplementation) and 1% plain lidocaine Procedure: The patient tolerated the procedure well Coding - Large joint Procedure code (CPT) selection complete Results Reviewed Results Reviewed: X-rays of the patient's bilateral knees taken previously show joint space narrowing, subchondral sclerosis, no acute bony abnormalities Assessment & Plan Assessment & Plan (1) Osteoarthritis of left knee: Code(s): M17.12 - Unilateral primary osteoarthritis, left knee Category: Medical (2) Osteoarthritis of right knee: Code(s): M17.11 - Unilateral primary osteoarthritis, right knee Category: Medical Plan Mr. Jacobs presents with bilateral knee pains due to osteoarthritis. The risks and benefits of bilateral Durolane viscosupplementation injections were discussed at length with the patient. The patient wished to proceed. He tolerated the injections well. He will continue with his home exercise program. He will contact me prior to his follow-up appointment in 3 months should any questions or concerns arise. Feel free to call me at any time should questions regarding his orthopedic management arise. I spent 20 minutes in reviewing the patient's records and imaging studies, seeing the patient and documenting in the medical record. Orders: Orders AMB Joint Injection/Aspiration 04/06/24 M17.11 - Unilateral primary osteoarthritis, right knee AMB Joint Injection/Aspiration 04/06/24 M17.12 - Unilateral primary osteoarthritis, left knee Coding Level of Care Code Est Pt Level 3 (84946) Complex EM visit Add On G2211 Diagnoses Osteoarthritis of left knee M17.12 Osteoarthritis of right knee M17.11 CPT Codes Coding - 23206 Large joint: 73398 - Large joint ([id number]) Coding - 37472 Large joint: 95448 - Large joint ([id number])
[2024-04-06 14:24] VITALS: BMI 58.3
== END 2024-04-06 14:44 | disposition home or self-care (01) ==
PROVIDERS: PCP Internal Medicine; Visit Provider Orthopaedic Surgery
DX: M17.0 Bilateral primary osteoarthritis of knee (principal)
CPT/HCPCS: 20610; 99213

== ENCOUNTER → 2024-04-06 14:15 | Outpatient (BNVA) | payer OTHER, SELFPAY | PROVIDERS: PCP Internal Medicine; Visit Provider Orthopaedic Surgery | DX: M17.0 Bilateral primary osteoarthritis of knee (principal) | CPT/HCPCS: 20610; J2003; J7318 ==